=== PATIENT | female | born 1975 | race African-American/Black ===

== ENCOUNTER 2019-05-22 10:33 | Emergency (ER) | payer MEDICARE ==
[~2019-05-22] VITALS: Ht 162.6 cm; Wt 62.6 kg
[2019-05-22] MEDS ORDERED: ONDANSETRON HCL 4 MG/2 ML VIAL IM ONE (11:15)
[2019-05-22] MEDS ORDERED: MORPHINE SULFATE 4 MG/ML SYR/VIAL IM ONE (11:15)
[2019-05-22 11:29] LABS: Basophils # (auto) 0.1 uL; Eosinophils # (auto) 0.2 uL; Hemoglobin 11.8 g/dL (12.2-16.2); Lymphocytes # (auto) 2.9 uL; Mean Corpuscular Hemoglobin 25.2 pg (28.0-32.0); Monocytes # (auto) 0.4 uL; Nucleated Red Blood Cells % 0.2 %
[2019-05-22 11:32] LABS: Basophils % (auto) 0.8 % (0.0-2.0); Eosinophils % (auto) 2.4 % (0.0-7.0); Hematocrit 35.2 % (36.0-46.0); Lymphocytes % (auto) 39.4 % (10.0-50.0); Mean Corpuscular Hgb Conc. 33.5 g/dL (32.0-36.0); Mean Corpuscular Volume 75.2 fL (80.0-100.0); Monocytes % (auto) 5.1 % (0.0-12.0); Neutrophils # (auto) 3.8 uL; Neutrophils % (auto) 52.3 % (37.0-80.0); Platelet Count (auto) 308 10^3/uL (140-450); Red Blood Cells 4.68 10^6/uL (4.0-5.20); Red Cell Distribution Width 17.1 % (11.8-14.3); White Blood Cell 7.3 10^3/uL (4.4-10.8)
[2019-05-22 11:51] LABS: Albumin 3.3 g/dL (3.4-5.0); Calcium 8.4 mg/dL (8.5-10.1); Potassium 3.8 mmol/L (3.5-5.1)
[2019-05-22 11:55] LABS: BUN/Creatinine Ratio 13.6; Total Protein 7.3 g/dL (6.4-8.2)
[2019-05-22 13:23] VITALS: BP 107/63
== END 2019-05-22 14:46 | disposition home or self-care (01) ==
LOC: ER 10:37
DX: S33.5XXA Sprain of ligaments of lumbar spine, initial encounter (principal); W01.0XXA Fall on same level from slipping, tripping and stumbling without subsequent striking against object, initial encounter; Y93.89 Activity, other specified; Y92.481 Parking lot as the place of occurrence of the external cause; Y99.8 Other external cause status
CPT/HCPCS: 36415; 74176; 80053; 84702; 85025; 96372; 99284; J2270; J2405

== ENCOUNTER 2019-06-03 21:00 | Emergency (ER) | payer MEDICARE, MEDICAID ==
[~2019-06-03] VITALS: Ht 162.6 cm; Wt 58.5 kg
[2019-06-03 21:37] LABS: Basophils # (auto) 0.1 uL; Hemoglobin 11.4 g/dL (12.2-16.2); Nucleated Red Blood Cells % 0.1 %
[2019-06-03 21:39] LABS: Basophils % (auto) 1.1 % (0.0-2.0); Eosinophils # (auto) 0.1 uL; Eosinophils % (auto) 0.7 % (0.0-7.0); Hematocrit 35.4 % (36.0-46.0); Lymphocytes # (auto) 3.7 uL; Lymphocytes % (auto) 46.6 % (10.0-50.0); Mean Corpuscular Hemoglobin 24.6 pg (28.0-32.0); Mean Corpuscular Hgb Conc. 32.1 g/dL (32.0-36.0); Mean Corpuscular Volume 76.6 fL (80.0-100.0); Monocytes # (auto) 0.7 uL; Neutrophils # (auto) 3.4 uL; Neutrophils % (auto) 42.6 % (37.0-80.0); Platelet Count (auto) 413 10^3/uL (140-450); Red Blood Cells 4.63 10^6/uL (4.0-5.20); Red Cell Distribution Width 16.7 % (11.8-14.3); White Blood Cell 7.9 10^3/uL (4.4-10.8)
[2019-06-03 21:49] LABS: INR 1.06 (0.9-1.15); Partial Thromboplastin Time 28.2 sec (23.64-32.05)
[2019-06-03 21:53] LABS: Albumin 3.2 g/dL (3.4-5.0); Anion Gap 8 (5-15); Calcium 8.4 mg/dL (8.5-10.1); Carbon Dioxide 22 mmol/L (21-32); Chloride 110 mmol/L (98-107); Glucose 84 mg/dL (74-106); Potassium 3.7 mmol/L (3.5-5.1); Sodium 140 mmol/L (136-145)
[2019-06-03 21:59] LABS: Alanine Aminotransferase 22 U/L (13-56); Alkaline Phosphatase 94 U/L (45-117); Aspartate Aminotransferase 16 U/L (15-37); Bilirubin, Total 0.6 mg/dL (0.2-1.0); Blood Urea Nitrogen 10 mg/dL (7-18); GFR African American 174 mL/min; GFR Non-African American 144 mL/min; Total Protein 7.2 g/dL (6.4-8.2)
[2019-06-04] MEDS ORDERED: ONDANSETRON HCL 4 MG/2 ML VIAL IV ONE (00:30)
[2019-06-04] MEDS ORDERED: MORPHINE SULFATE 4 MG/ML SYR/VIAL IV ONE (00:30)
[2019-06-04 01:36] LABS: Urine Amorphous Crystal FEW /hpf (None Seen); Urine Bacteria FEW /hpf (None Seen); Urine Blood Negative /uL (Negative); Urine Mucus FEW (None Seen); Urine Specific Gravity 1.035 (1.001-1.035); Urine WBC 6 /hpf (0 - 5)
[2019-06-04 01:42] LABS: Amphetamine Screen, Urine NEGATIVE (NEGATIVE); Barbiturate Scree,Urine NEGATIVE (NEGATIVE); Benzodiazephine Screen, Urine NEGATIVE (NEGATIVE); Cannabinoid Screen, Urine POSITIVE (NEGATIVE); Cocaine Screen, Urine NEGATIVE (NEGATIVE); Opiate Scree,Urine NEGATIVE (NEGATIVE); Phencyclidine Screen, Urine POSITIVE (NEGATIVE)
[2019-06-04] MEDS ORDERED: IOHEXOL 300 MG/ML 100ML BOTTLE IJ ONE (06:48)
[2019-06-04 10:48] VITALS: BP 99/65
== END 2019-06-04 11:11 | disposition home or self-care (01) ==
LOC: EDBD 21:00 → ER 21:02
DX: E86.0 Dehydration (principal); R07.89 Other chest pain; F12.10 Cannabis abuse, uncomplicated; F19.10 Other psychoactive substance abuse, uncomplicated; F10.10 Alcohol abuse, uncomplicated; E44.1 Mild protein-calorie malnutrition; R82.71 Bacteriuria; F17.210 Nicotine dependence, cigarettes, uncomplicated; Z68.22 Body mass index [BMI] 22.0-22.9, adult; Y90.9 Presence of alcohol in blood, level not specified
CPT/HCPCS: 36415; 71045; 74177; 80053; 80307; 81001; 81025; 83880; 84484; 85025; 85379; 85610; 85730; 93005; 94761; 96374; 96375; 99284; J2270; J2405; Q9967